=== PATIENT | female | born 1945 | race American Indian/Alaskan Native ===

== ENCOUNTER 2017-06-02 10:44 | Emergency (ER) | payer MEDICARE ==
[2017-06-02 11:57] LABS: Basophils % (Auto) 0.9 % (0.0-1.8); Eosinophils # (Auto) 0.1 K/mm3 (0.0-0.4); Eosinophils % (Auto) 2.9 % (0.0-4.3); Hematocrit 43.2 % (30.3-42.9); Hemoglobin 14.4 gm/dl (10.1-14.3); Lymphocytes # (Auto) 1.4 K/mm3 (1.2-5.4); Lymphocytes % (Auto) 30.7 % (13.4-35.0); Mean Corpuscular HGB Conc 33 % (30-34); Mean Corpuscular Hemoglobin 32 pg (28-32); Mean Corpuscular Volume 95 fl (79-97); Monocytes # (Auto) 0.6 K/mm3 (0.0-0.8); Monocytes % (Auto) 12.7 % (0.0-7.3); Platelet Count 170 K/mm3 (140-440); Red Blood Count 4.56 M/mm3 (3.65-5.03); Red Cell Distribution Width 13.6 % (13.2-15.2)
[2017-06-02 12:40] LABS: Alanine Aminotransferase 23 units/L (7-56); Albumin 4.1 g/dL (3.9-5); BUN/Creatinine Ratio 10; Blood Urea Nitrogen 8 mg/dL (7-17); Calcium 9.4 mg/dL (8.4-10.2); Hemolysis Index 3
--- NOTE | 2017-06-02 14:43 | Emergency Department Report ---
Chief Complaint: Urogenital-Female Stated Complaint: LEFT SIDE PELVIC PAIN Time Seen by Provider: 06/02/17 14:27 - HPI History of Present Illness: 71-year-old female presents with a 5 day history of left-sided groin/pelvic pain. It worsens with movement but still hurts at rest and can be as bad as 9 out of 10 in intensity. She has a history of hypertension and "heart problems. " No problems with bowel movements but having some trouble urinating since she went upon waking this morning. - ROS Review of Systems: Patient is positive for pelvic pain and/or groin pain, dysuria She has negative for nausea, vomiting, vaginal discharge, vaginal bleeding, fever - Exam Vital Signs: Vital Signs 06/02/17 11:17 Temperature 97.6 F Pulse Rate 94 H Respiratory 16 Rate Blood Pressure 134/78 O2 Sat by Pulse 98 Oximetry Physical Exam: Patient is awake and alert in no acute distress. I do not feel any palpable hernia in that area. MSE screening note: Focused history and physical exam performed. Due to findings the following was ordered: She will have a urinalysis. We will obtain a CT scan of the abdomen and pelvis with IV contrast. ED Medical Decision Making - Lab Data Result diagrams: 06/02/17 11:43 06/02/17 11:43 ED Disposition for MSE Condition: Stable Referrals: YEHUDA TURNER [Other] - 3-5 Days
[2017-06-02 16:25] LABS: Bacteria,Urine 4+ /HPF (Negative); Bilirubin,Urine NEG (Negative); Blood,Urine SM (Negative); Color,Urine Yellow (Yellow); Protein,Urine <15 mg/dL mg/dL (Negative); Urobilinogen,Urine < 2.0 mg/dL (<2.0)
--- NOTE | 2017-06-02 16:47 | Ultrasound Report ---
FINAL REPORT EXAM: US BLADDER RESIDUAL HISTORY: unable to urinate TECHNIQUE: Examination of the femalebladder was performed using transabdominal imaging both prior to and following voiding. PRIORS: None. FINDINGS: The urinary bladder is optimally distended with no evidence for wall thickening, trabeculation, or intraluminal abnormality. Pre- and post-void volumes are 200 cc and 15 cc, respectively, consistent with no significant postvoid residual. IMPRESSION: No abnormality of the bladder identified. No significant postvoid residual is seen.
[2017-06-02] MEDS ORDERED: TORADOL IV ONE (17:09)
--- NOTE | 2017-06-02 18:19 | Emergency Department Report ---
ED Abdominal Pain HPI - General Chief Complaint: Urogenital-Female Stated Complaint: LEFT SIDE PELVIC PAIN Time Seen by Provider: 06/02/17 14:27 Source: patient Mode of arrival: Ambulatory Limitations: No Limitations - History of Present Illness Initial Comments: This is a 71-year-old female nontoxic, well nourished in appearance, no acute signs of distress presents to the ED with c/o of left sided groin x 5 days. Patient denies any trauma. Patient stated it is worse with movement but is slightly relieved when at rest. Patient denies any vaginal discharge or vaginal bleeding. Patient denies any dysuria, polyuria, hematuria, fever, chills , headache, nausea, vomiting, chest pain, or shortness of breathe. Patient stated that she does has trouble urinating since she went this morning. Patient denies any allergies. PMH includes HTN. MD Complaint: abdominal pain -: days(s) (5) Radiation: none Migration to: no migration Severity: mild Severity scale (0 -10): 8 Quality: cramping Consistency: intermittent Improves With: rest Worsens With: movement Associated Symptoms: denies other symptoms. denies: nausea, vomiting, diarrhea , fever, chills, constipation, dysuria, hematemesis, hematochezia, melena, hematuria, anorexia, syncope - Related Data Previous Rx's Medication Instructions Recorded Last Taken Type Ibuprofen [Motrin] 600 mg PO Q8H PRN #30 tablet 06/02/17 Unknown Rx Allergies Allergy/AdvReac Type Severity Reaction Status Date / Time No Known Allergies Allergy Unverified 06/02/17 11:23 ED Review of Systems ROS: Stated complaint: LEFT SIDE PELVIC PAIN Other details as noted in HPI Constitutional: denies: chills, fever Eyes: denies: eye pain, eye discharge, vision change ENT: denies: ear pain, throat pain Respiratory: denies: cough, shortness of breath, wheezing Cardiovascular: denies: chest pain, palpitations Endocrine: no symptoms reported Gastrointestinal: abdominal pain. denies: nausea, diarrhea Genitourinary: denies: urgency, dysuria, discharge Musculoskeletal: denies: back pain, joint swelling, arthralgia Skin: denies: rash, lesions Neurological: denies: headache, weakness, paresthesias Psychiatric: denies: anxiety, depression Hematological/Lymphatic: denies: easy bleeding, easy bruising ED Past Medical Hx - Past Medical History Hx Hypertension: Yes - Surgical History Past Surgical History?: No - Social History Smoking Status: Never Smoker Substance Use Type: None - Medications Home Medications: Home Medications Medication Instructions Recorded Confirmed Last Taken Type Ibuprofen [Motrin] 600 mg PO Q8H PRN #30 tablet 06/02/17 Unknown Rx ED Physical Exam - General Limitations: No Limitations General appearance: alert, in no apparent distress - Head Head exam: Present: atraumatic, normocephalic - Eye Eye exam: Present: normal appearance, PERRL, EOMI Pupils: Present: normal accommodation - ENT ENT exam: Present: normal exam, normal orophraynx, mucous membranes moist, TM's normal bilaterally, normal external ear exam - Neck Neck exam: Present: normal inspection, full ROM. Absent: tenderness, meningismus, lymphadenopathy, thyromegaly - Respiratory Respiratory exam: Present: normal lung sounds bilaterally. Absent: respiratory distress, wheezes, rales, rhonchi, stridor, chest wall tenderness, accessory muscle use, decreased breath sounds, prolonged expiratory - Cardiovascular Cardiovascular Exam: Present: regular rate, normal rhythm, normal heart sounds. Absent: irregular rhythm, systolic murmur, diastolic murmur, rubs, gallop - GI/Abdominal GI/Abdominal exam: Present: soft, tenderness (left groin area.), normal bowel sounds. Absent: distended, guarding, rebound, rigid, diminished bowel sounds - Expanded GI/Abdominal Exam Expanded GI/Abdominal exam: Absent: psoas sign, obturator sign, heel tap sign, Olvera's sign, Rovsing's sign, tenderness at Mcburney's Point, ascites - Rectal Rectal exam: Present: deferred - Extremities Exam Extremities exam: Present: normal inspection, full ROM, normal capillary refill. Absent: tenderness, pedal edema, joint swelling, calf tenderness - Back Exam Back exam: Present: normal inspection, full ROM. Absent: tenderness, CVA tenderness (R), CVA tenderness (L), muscle spasm, paraspinal tenderness, vertebral tenderness, rash noted - Neurological Exam Neurological exam: Present: alert, oriented X3, CN II-XII intact, normal gait, reflexes normal - Psychiatric Psychiatric exam: Present: normal affect, normal mood - Skin Skin exam: Present: warm, dry, intact, normal color. Absent: rash ED Course Vital Signs 06/02/17 11:17 Temperature 97.6 F Pulse Rate 94 H Respiratory 16 Rate Blood Pressure 134/78 O2 Sat by Pulse 98 Oximetry - Reevaluation(s) Reevaluation #1: 06/02/17 18:40 Patient is speaking in full sentences with no signs of distress noted. - Consultations Consultation #1: 06/02/17 18:40 Patient has been consulted with Dr. Ji about patient history, physical exam, and labs and examined and screened patient and agrees to ED plan of care and discharge plan of care. ED Medical Decision Making - Lab Data Result diagrams: 06/02/17 11:43 06/02/17 11:43 - Medical Decision Making This is a 71-year-old female that presents with left groin pain. Patient is stable and was examined by me and Dr. Ji. CT of abdomen/pelvic obtained within normal limits. Patient received Toradol 30mg IV. Patient stated symptoms resolved. PAtient is discharged with Motrin. Labs within normal limits. Vitals within normal limits. Patient was instructed to Follow-up with a primary care doctor in 3-5 days or if symptoms worsen and continue return to emergency room as soon as possible. At time of discharge, the patient does not seem toxic or ill in appearance. No acute signs of distress noted. Patient agrees to discharge treatment plan of care. No further questions noted by the patient. Critical care attestation.: If time is entered above; I have spent that time in minutes in the direct care of this critically ill patient, excluding procedure time. ED Disposition Clinical Impression: Left groin pain Disposition: DC-01 TO HOME OR SELFCARE Is pt being admited?: No Does the pt Need Aspirin: No Condition: Stable Instructions: Groin Pain (ED), Ibuprofen (By mouth) Additional Instructions: Follow-up with a primary care doctor in 3-5 days or if symptoms worsen and continue return to emergency room as soon as possible. Prescriptions: Ibuprofen [Motrin] 600 mg PO Q8H PRN #30 tablet PRN Reason: Pain Referrals: YEHUDA TURNER [Other] - 3-5 Days MEL MATHEWS MD [Staff Physician] - 3-5 Days PRIMARY CARE, [Referring] - 3-5 Days [facility] [Outside] - 3-5 Days [facility] [Outside] - 3-5 Days Forms: Work/School Release Form(ED)
[2017-06-02] MEDS ORDERED: TORADOL ONE (19:34)
--- NOTE | 2017-06-02 20:09 | Cat Scan Report ---
FINAL REPORT EXAM: CT ABDOMEN PELVIS W CON HISTORY: Pelvic pain / groin pain TECHNIQUE: Standard enhanced CT of the abdomen and pelvis was obtained at 1.25 mm and 2.5 mm axial increments. Coronal and sagittal reconstruction was also performed. Delayed imaging through the kidneys and bladder was also obtained. Contrast: Intravenous contrast given. PRIORS: None. FINDINGS: Within the abdomen, the liver, spleen, pancreas, gallbladder, adrenal glands, and kidneys are unremarkable. No evidence for retroperitoneal or pelvic lymphadenopathy is seen. There is a 1 cm lymph node at the bifurcation of the aorta along midline (Axial image 129, series 3). The bowel loops have normal caliber. No soft tissue mass, fluid collection, inflammatory change, or free air is seen within the abdomen or pelvis. The appendix is normal. Calcification of the aorta is seen. The aorta is normal in caliber without evidence for aneurysm or dissection. Within the pelvis, the bladder is unremarkable. The uterus has been surgically removed. No evidence for mass or lymphadenopathy is seen in the pelvis. Images through the upper abdomen include the lung bases which are expanded and clear. Bony structures show mild superior endplate narrowing of L3 of indeterminate age. IMPRESSION: No acute intra-abdominal process noted.
[2017-06-02 20:23] VITALS: BP 132/82
== END 2017-06-02 20:25 | disposition home or self-care (01) ==
LOC: ED 10:44
DX: R10.32 Left lower quadrant pain (principal); I10 Essential (primary) hypertension
CPT/HCPCS: 36415; 74177; 76857; 80053; 81001; 85025; 96374; 99284; J1885; Q9967